=== PATIENT | male | born 1970 | race Caucasian/White ===

== ENCOUNTER 2016-12-03 03:54 | Emergency (ER) | payer BC, OTHER ==
[2016-12-03 04:12] VITALS: BP 112/79
--- NOTE | 2016-12-03 04:41 | EDM.PDOC ---
ED HPI GENERAL MEDICAL PROBLEM - General Chief Complaint: General Stated Complaint: TINGLING HANDS/FEET & DIZZY Time Seen by Provider: 12/03/16 03:57 Source of Information: Reports: Patient History Limitations: Reports: No Limitations - History of Present Illness INITIAL COMMENTS - FREE TEXT/NARRATIVE: This is a 46-year-old male. This morning around 2:30 AM he was working on a ladder and felt Confused and woozy so he climbed down from the ladder and noted some tingling in his feet and his hands and he felt somewhat unsteady. He taken his blood sugar when he woke up and it was 104 and around 3:15 he took his blood sugar was 121 100 for the last 3 years he's been on no medications for his diabetes and he was just started back on glipizide, Januvia and metformin a few weeks ago and his blood sugars he states it gone from 400 down to 100. When he awoke this morning to go to work he noted that he had a headache and his eyes were very blurry and he could hardly see. Since then the vision has cleared up and his headache has gotten somewhat better. He did not have any episode of sweating he did not have any syncope. He states that he has chronic pain in his back and his feet and his shoulders and when he was having this episode of tingling in his hands and feet all that pain went away and he has no pain. As the tingling is resolving here in the ER he says his foot pain and other painful areas seem to be waking back up. He denies any nausea or vomiting denies any fever chills or cough. - Related Data Allergies Allergy/AdvReac Type Severity Reaction Status Date / Time No Known Allergies Allergy Verified 12/03/16 04:13 Home Meds: Home Meds glipiZIDE [Glipizide Xl] 5 mg PO DAILY 12/03/16 [History] metFORMIN [Glucophage XR] 500 mg PO BIDMEALS 12/03/16 [History] Past Medical History Genitourinary History: Reports: Renal Calculus Musculoskeletal History: Reports: Back Pain, Chronic, Other (See Below) Other Musculoskeletal History: ruptured L4 & L5 Neurological History: Reports: Headaches, Chronic Endocrine/Metabolic History: Reports: Diabetes, Type II - Past Surgical History HEENT Surgical History: Reports: Tonsillectomy Social & Family History - Family History Family Medical History: Noncontributory - Tobacco Use Smoking Status *Q: Light Tobacco Smoker Years of Tobacco use: 29 Packs/Tins Daily: 0.2 - Caffeine Use Caffeine Use: Reports: Coffee, Energy Drinks - Recreational Drug Use Recreational Drug Use: No ED ROS GENERAL - Review of Systems Review Of Systems: See Below Constitutional: Reports: Fatigue. Denies: Fever, Chills HEENT: Reports: No Symptoms Respiratory: Reports: No Symptoms Cardiovascular: Reports: No Symptoms Endocrine: Reports: High Glucose GI/Abdominal: Reports: No Symptoms : Reports: No Symptoms Musculoskeletal: Reports: Other (Chronic foot pain back pain and shoulder pain) Skin: Reports: No Symptoms Neurological: Reports: Confusion, Dizziness, Headache, Tingling Psychiatric: Reports: No Symptoms Hematologic/Lymphatic: Reports: No Symptoms Immunologic: Reports: No Symptoms ED EXAM, GENERAL - Physical Exam Exam: See Below Exam Limited By: No Limitations General Appearance: Alert, WD/WN, No Apparent Distress Eye Exam: Bilateral Eye: Normal Inspection Ears: Normal External Exam, Normal Canal, Normal TMs Nose: Normal Inspection Throat/Mouth: Normal Inspection, Normal Lips, Normal Voice, No Airway Compromise Head: Normocephalic Neck: Supple Respiratory/Chest: No Respiratory Distress, Lungs Clear, Normal Breath Sounds Cardiovascular: Regular Rate, Rhythm, No Murmur GI/Abdominal: Soft Back Exam: Normal Inspection, Full Range of Motion Extremities: Normal Inspection, Normal Range of Motion, No Pedal Edema Neurological: Alert, Oriented, Other (The tingling that was taking place in his feet and hands and the trembling is basically resolving, he is got good paramedical aide bilaterally he does not appear to have unilateral weakness of the arms or legs) . No: Confused Psychiatric: Normal Affect, Normal Mood Skin Exam: Warm, Dry Course - Vital Signs Last Recorded V/S: Last Vital Signs Temp 97 F 12/03/16 04:07 Pulse 69 12/03/16 04:07 Resp 20 12/03/16 04:07 BP 112/79 12/03/16 04:07 Pulse Ox 100 12/03/16 04:07 - Orders/Labs/Meds Labs: Laboratory Tests 12/03/16 12/03/16 Range/Units 04:38 04:38 WBC 8.69 (4.23-9.07) K/mm3 RBC 4.69 (4.63-6.08) M/mm3 Hgb 13.4 L (13.7-17.5) gm/L Hct 38.4 L (40.1-51.0) % MCV 81.9 (79.0-92.2) fl MCH 28.6 (25.7-32.2) pg MCHC 34.9 (32.2-35.5) g/dl RDW Std Deviation 38.0 (35.1-43.9) fL Plt Count 229 (163-337) K/mm3 MPV 9.2 L (9.4-12.3) fl Neut % (Auto) 64.3 (34.0-67.9) % Lymph % (Auto) 24.1 (21.8-53.1) % [place] % (Auto) 8.2 (5.3-12.2) % Eos % (Auto) 2.6 (0.8-7.0) Baso % (Auto) 0.6 (0.1-1.2) % Neut # (Auto) 5.59 H (1.78-5.38) K/mm3 Lymph # (Auto) 2.09 (1.32-3.57) K/mm3 [place] # (Auto) 0.71 (0.30-0.82) K/mm3 Eos # (Auto) 0.23 (0.04-0.54) K/mm3 Baso # (Auto) 0.05 (0.01-0.08) K/mm3 Sodium 136 (136-145) mEq/L Potassium 3.8 (3.5-5.1) mEq/L Chloride 102 (98-107) mEq/L Carbon Dioxide 25 (21-32) mEq/L Anion Gap 12.8 (5-15) BUN 19 H (7-18) mg/dL Creatinine 0.8 (0.7-1.3) mg/dL Est Cr Clr Drug Dosing 117.86 mL/min Estimated GFR (MDRD) > 60 (>60) mL/min BUN/Creatinine Ratio 23.8 H (14-18) Glucose 239 H (74-106) mg/dL Calcium 9.1 (8.5-10.1) mg/dL Total Bilirubin 0.4 (0.2-1.0) mg/dL AST 15 (15-37) U/L ALT 22 (16-63) U/L Alkaline Phosphatase 45 L (46-116) U/L Total Protein 6.4 (6.4-8.2) g/dl Albumin 3.8 (3.4-5.0) g/dl Globulin 2.6 gm/dL Albumin/Globulin Ratio 1.5 (1-2) - Re-Assessments/Exams Free Text/Narrative Re-Assessment/Exam: 12/03/16 04:40 With the new medications. I believe his blood sugars are rapidly dropping which might be a cause for some of his nerve dysfunction causing the tingling as well as maybe even the confusion if the blood sugar drops to rapidly as well as the dizziness. I will checks a CBC and some electrolytes on him to make certain there is nothing obviously abnormal other than his blood sugars seem to be elevated and low from his new medications. 12/03/16 05:58 Patient is feeling back to normal now. I believe it may be his new blood sugar medications in combination is causing the yo-yo effect with his blood sugars giving him the myriad number of symptoms that he seems to be having. I have encouraged him to stay on his medications with his body can get used to this and then the symptoms. Departure - Departure Time of Disposition: 05:59 Disposition: Home, Self-Care 01 Condition: Good Clinical Impression: Hypoglycemia Diabetes mellitus Qualifiers: Diabetes mellitus type: type 1 Diabetes mellitus complication status: with unspecified complications Qualified Code(s): E10.8 - Type 1 diabetes mellitus with unspecified complications - Discharge Information Referrals: PCP,Not In Area [Primary Care Provider] - Forms: ED Department Discharge, ED Return to Work/School Form Additional Instructions: Sleep drink lots of fluids and take your medications faithfully so that your body will get used to them, follow-up your family doctor for your diabetes as scheduled, return to the ER if needed
== END 2016-12-03 06:23 | disposition home or self-care (01) ==
LOC: JD.ED 03:54
DX: E11.649 Type 2 diabetes mellitus with hypoglycemia without coma (principal); F17.210 Nicotine dependence, cigarettes, uncomplicated; Z79.899 Other long term (current) drug therapy; Z87.442 Personal history of urinary calculi; Z98.890 Other specified postprocedural states
CPT/HCPCS: 36415; 80053; 85025; 99283; 99284